=== PATIENT | female | born 1940 | race Caucasian/White ===

== ENCOUNTER → 2018-04-20 | Day surgery (SDC) | payer OTHER, MEDICARE ==
[2018-04-13 14:02] LABS: BASOPHILS % 0.6 % (0.0-1.0); EOSINOPHILS # (AUTO) 0.1 (0.0-0.4); EOSINOPHILS % 1.1 % (0.0-6.0); HEMATOCRIT 46.9 % (34.2-44.1); HEMOGLOBIN 15.4 g/dL (12.0-16.0); LYMPHOCYTES # (AUTO) 2.6 (1.0-3.2); LYMPHOCYTES % 37.1 % (18.0-39.1); MEAN CORPUSCULAR HEMOGLOBIN 29.8 pg (28-32); MEAN CORPUSCULAR HGB CONC 32.8 g/dL (31-35); MEAN CORPUSCULAR VOLUME 90.7 fL (81-99); MONOCYTES # (AUTO) 0.6 (0.2-0.8); MONOCYTES % 8.6 % (4.4-11.3); NEUTROPHILS # (AUTO) 3.7 (2.1-6.9); NEUTROPHILS % 52.3 % (38.7-80.0); PLATELET COUNT 225 x10e3/uL (140-360); RED BLOOD COUNT 5.17 x10e6/uL (3.6-5.1); RED CELL DISTRIBUTION WIDTH 12.8 % (11.7-14.4)
[~2018-04-20] MED LIST: FENTANYL CITRATE/PF 100MCG/2 ML INJ ONE; HYDROCODON-ACE1 EAC9 PO; IBANDRONATE SO150 MG PO; LEVOCETIRIZINE D5 MG PO; LIDOCAINE HCL 2% LOCAL INJ 5 ML SDV VIAL INJ ONE; MIDAZOLAM HCL 2 MG/2 ML VIAL ONE; PRAVASTATIN SOD40 MG PO; PREVACID30 MG PO; PROPOFOL IV EMULSION 10 MG/ML 50 ML VIAL ONE; RANITIDINE HCL300 MG PO; VENTOLIN HFA18 GM INH; Z.0.ASPIRIN325 MG PO; Z.0.LANSOPRAZOLE30 M PO; Z.0.LIPITOR40 MG PO; Z.0.SUCRALFATE1 GM PO
--- OUTSIDE RECORDS SUMMARY | 2018-04-20 06:26 | XMS REPORT ---
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 Allergies, Adverse Reactions, Alerts Allergy Name Allergy Type Status Severity Reaction(s) Onset Date Inactive Date Treating Clinician Comments No Known Contrast Allergies DA Active U 2007-11-22 00:00:00 No Known Drug Allergies DA Active U 2007-11-22 00:00:00 No Known Food Allergies DA Active U 2007-11-22 00:00:00 No Known Other Allergies DA Active U 2007-11-22 00:00:00 No Known Drug Intolerances DA Active U 2007-11-20 00:00:00 Not Converted 80. See Text. DA Active U 2007-11-20 00:00:00 Medications This patient has no known medications.
[2018-04-20 10:10] VITALS: BP 124/78
--- NOTE | 2018-04-20 10:29 | Operative Report ---
DATE OF PROCEDURE: April 20, 2018 PROCEDURE PERFORMED: Esophagogastroduodenoscopy and colonoscopy. PREOPERATIVE DIAGNOSES 1. Epigastric and abdominal pain. 2. Gastroesophageal reflux disease. POSTOPERATIVE DIAGNOSES 1. Hiatal hernia. 2. Reflux esophagitis. 3. Bile reflux gastritis. PREOPERATIVE DIAGNOSIS FOR COLONOSCOPY: History of colon polyps. POSTOPERATIVE DIAGNOSES 1. Colon polyp in the ascending colon. 2. Diverticulosis. 3. Internal hemorrhoids. PREOPERATIVE MEDICATIONS: Consisted of general anesthesia. PROCEDURE: Esophagogastroduodenoscopy. Using the Olympus Groove video gastroscope, it was inserted in the patient's oropharynx and advanced to the hypopharynx and down to the esophagus. The mucosa pattern in the esophagus was normal until we hit the area of the lower esophagus where we had reflux esophagitis hitting above a sliding type hiatal hernia. The hiatal hernia was from 37-38 cm. A biopsy was obtained in the area above the GE junction where the esophagitis was noted. The stomach was entered and insufflated with air. The mucosa of the cardia, fundus, body, and antrum was viewed. There was evidence of a lot of bile sitting in the stomach. After suctioning it out, we noticed that there was a bile reflux gastritis throughout the entire stomach. No ulcerations were seen. The motility was normal. The pylorus was visualized and entered. The duodenal bulb and postbulbar duodenum were found to be within normal limits. The endoscope was then withdrawn back up into the stomach where biopsies were obtained in the antrum, body and fundus and cardia looking for H. pylori infection. The endoscope was withdrawn back up into the esophagus, the hypopharynx, oropharynx and out of the patient's mouth. The procedure was ended. In conclusion, we have findings of a hiatal hernia with reflux esophagitis. Rule out Andrews's esophagus and a bile reflux gastritis. PROCEDURE: Colonoscopy. After normal digital rectal examination, the Olympus Groove video colonoscope was inserted into the patient's rectum and advanced without difficulty to the level of the cecum. The colon was studied from that level back down to the rectum. In the ascending colon, there was a 5 mm size sessile polyp, which was removed with the hot biopsy forceps. Throughout the colon, especially down in the descending and sigmoid colon, there was evidence of extensive diverticulosis without evidence of diverticulitis. As we withdrew the colonoscope back down to the rectum, we noticed that there was internal hemorrhoids present in the retroflex view, as well as in the anti-flex view. The colonoscope was withdrawn from the patient's rectum, and the procedure was ended. In conclusion, we have findings of benign polyp in the ascending colon, diverticulosis of the colon throughout, and internal hemorrhoids. Job#: [id number] RUDY
== END | disposition home or self-care (01) ==
LOC: OR 06:24
PROVIDERS: ATTEND Internal Medicine Gastroenterology
DX: K21.0 Gastro-esophageal reflux disease with esophagitis (principal); K44.9 Diaphragmatic hernia without obstruction or gangrene; K29.50 Unspecified chronic gastritis without bleeding; B96.81 Helicobacter pylori [H. pylori] as the cause of diseases classified elsewhere; K92.1 Melena; D12.2 Benign neoplasm of ascending colon; K59.00 Constipation, unspecified; K57.30 Diverticulosis of large intestine without perforation or abscess without bleeding; K64.8 Other hemorrhoids; Z87.11 Personal history of peptic ulcer disease; Z01.810 Encounter for preprocedural cardiovascular examination; Z01.812 Encounter for preprocedural laboratory examination; Z91.041 Radiographic dye allergy status
CPT/HCPCS: 36415; 43239; 45384; 85025; 93005; J2001; J2250